=== PATIENT | male | born 1965 | race Caucasian/White ===

== ENCOUNTER 2023-10-17 12:26 | Emergency (ER) | payer OTHER, MEDICARE ==
[2023-10-17] MEDS: LIDOCAINE 1% INJ 10MG/ML (20 ML MDV) SQ ONE (12:58)
[2023-10-17] MEDS: DIPH,PERTUS(ACELL)TETVAC-LF 0.5 ML VIAL IM ONE (12:58)
[2023-10-17] MEDS: HYDROcodone/APAP 5-325MG 1 EACH TAB PO STA (13:18)
--- NOTE | 2023-10-17 13:30 | ED ---
Wound/Laceration HPI - General Chief Complaint: Wound/Laceration Stated Complaint: Fall, injury to R leg Time Seen by Provider: 10/17/23 13:28 Source: patient, family, RN notes reviewed Mode of arrival: ambulatory Limitations: no limitations - History of Present Illness Initial Comments: Patient is a 58-year-old male presented to ER with chief complaint of laceration. Patient states he excellently tripped over his toolbox and cut his right leg. He states that his foot is tingling. Denies any other injuries. Tetanus status unknown. Patient has range of motion of ankle and digits with pain. Patient also reports on Thursday he got a nail in his left pointer finger. He states he pulled it out without difficulty. He reports he is having difficulty flexing that digit. Denies any redness, drainage or paresthesias. Denies any recent fevers, chills, night sweats. - Related Data Allergies Allergy/AdvReac Type Severity Reaction Status Date / Time escitalopram [From Lexapro] Allergy Hallucinati Verified 10/17/23 12:34 ons Review of Systems ROS Statement: Those systems with pertinent positive or pertinent negative responses have been documented in the HPI. ROS Other: All systems not noted in ROS Statement are negative. Past Medical History Past Medical History: Diabetes Mellitus, Hyperlipidemia, Hypertension History of Any Multi-Drug Resistant Organisms: None Reported Past Surgical History: Orthopedic Surgery Smoking Status: Never smoker Past Alcohol Use History: None Reported Past Drug Use History: None Reported General Exam Limitations: no limitations Course Vital Signs 10/17/23 10/17/23 12:30 14:45 Temperature 97.8 F 98.3 F Pulse Rate 95 81 Respiratory 20 18 Rate Blood Pressure 159/97 139/81 O2 Sat by Pulse 100 99 Oximetry Procedures - Laceration Laceration #1 Consent Obtained: verbal consent Indication: laceration Site: lower extremity Size (cm): 8 (8 x 4 flap) Description: flap Depth: simple, single layer Anesthetic Used: lidocaine 1% Anesthesia Technique: local infiltration Amount (mls): 12 Pre-repair: wound explored, irrigated extensively, deep structures intact Type of Sutures: nylon Size of Sutures: 4-0 Number of Sutures: 13 Technique: simple, interrupted Patient Tolerated Procedure: well, no complications Medical Decision Making - Medical Decision Making Was pt. sent in by a medical professional or institution (Dr., PA, RN PROCEDURES, urgent care, hospital, or residential...) When possible be specific @ -No Did you speak to anyone other than the patient for history (EMS, parent, family, police, friend...)? What history was obtained from this source @ -No Did you review nursing and triage notes (agree or disagree)? Why? @ -I reviewed and agree with nursing and triage notes Were old charts reviewed (outside hosp., previous admission, EMS record, old EKG, old radiological studies, urgent care reports/EKG's, residential records)? Report findings @ -No old charts were reviewed Differential Diagnosis (chest pain, altered mental status, abdominal pain women, abdominal pain men, vaginal bleeding, weakness, fever, dyspnea, syncope, headache, dizziness, GI bleed, back pain, seizure, CVA, palpatations, mental health, musculoskeletal)? @ -Laceration, abrasion, contusion, avulsion, foreign body this list is not me ant to be all-inclusive EKG interpreted by me (3pts min.). @ -None done X-rays interpreted by me (1pt min.). @ -Right tib-fib x-ray interpreted by me shows no acute fractures or dislocations. CT interpreted by me (1pt min.). @ -None done U/S interpreted by me (1pt. min.). @ -None done What testing was considered but not performed or refused? (CT, X-rays, U/S, labs)? Why? @ -None What meds were considered but not given or refused? Why? @ -None Did you discuss the management of the patient with other professionals (professionals i.e. CAROLINE Dias, RN PROCEDURES, lab, RT, psych nurse, social work specialist, hydraulic blocker, teacher, sba business development officer, immigration case worker)? Give summary @ -No Was smoking cessation discussed for >3mins.? @ -No Was critical care preformed (if so, how long)? @ -No Were there social determinants of health that impacted care today? How? (Homelessness, low income, unemployed, alcoholism, drug addiction, transportation, low edu. Level, literacy, decrease access to med. care, fpc, rehab)? @ -No Was there de-escalation of care discussed even if they declined (Discuss DNR or withdrawal of care, Hospice)? DNR status @ -No What co-morbidities impacted this encounter? (DM, HTN, Smoking, COPD, CAD, Cancer, CVA, ARF, Chemo, Hep., AIDS, mental health diagnosis, sleep apnea, morbid obesity)? @ -None Was patient admitted / discharged? Hospital course, mention meds given and route, prescriptions, significant lab abnormalities, going to OR and other pertinent info. @ -Discharge. Patient is a 58-year-old male presented to ER with chief complaint of laceration. History and physical exam completed. Vitals stable. Patient no signs of acute distress. Patient did have an 8 x 4 cm flap laceration to right anterior leg. Patient's right lower extremity neurovascular intact. Patient has full active range of motion. Deep structures intact. Imaging completed in the ER negative for acute fractures or dislocations. Tetanus updated. Wound cleaned with iodine and sterile water prior to closure. Laceration closed using 13 simple interrupted sutures. Patient tolerated procedure well. Suture care and return parameters were discussed. Advised patient to have sutures removed in 10 to 14 days. Patient will be discharged stable condition with follow-up to PCP. Patient expressed understanding and agreement with care plan.] Undiagnosed new problem with uncertain prognosis? @ -No Drug Therapy requiring intensive monitoring for toxicity (Heparin, Nitro, Insulin, Cardizem)? @ -No Were any procedures done? @ -Yes Diagnosis/symptom? @ -Laceration Acute, or Chronic, or Acute on Chronic? @ -Acute Uncomplicated (without systemic symptoms) or Complicated (systemic symptoms)? @ -Uncomplicated Side effects of treatment? @ -No Exacerbation, Progression, or Severe Exacerbation? @ -No Poses a threat to life or bodily function? How? (Chest pain, [place], [place], pneumonia, PE, COPD, DKA, ARF, appy, cholecystitis, CVA, Diverticulitis, Homicidal, Suicidal, threat to staff... and all critical care pts) @ -No - Radiology Data Radiology results: report reviewed, image reviewed Disposition Clinical Impression: Laceration Disposition: HOME SELF-CARE Condition: Stable Instructions (If sedation given, give patient instructions): Care For Your Stitches (DC) Additional Instructions: Please have sutures removed in 10-14 days. Monitor for signs of infection including surrounding redness or purulent drainage. Return to the ER for any new or worsening symptoms. Is patient prescribed a controlled substance at d/c from ED?: No Referrals: Panfilo Mariano MD [Primary Care Provider] - 1-2 days Time of Disposition: 14:09
--- NOTE | 2023-10-17 13:34 | XR ---
EXAMINATION TYPE: XR tibia fibula RT DATE OF EXAM: 10/17/2023 CLINICAL HISTORY: Trip and fall with laceration injury. TECHNIQUE: Two views of the right leg are obtained. COMPARISON: None. FINDINGS: Laceration injury along the anterior lateral aspect of the distal right leg is present. Th ere is no acute fracture or dislocation seen in the right tibia or fibula. The right knee and ankle joints appear grossly within normal limits. Moderate posterior vascular calcification is present. IMPRESSION: As above.
--- NOTE | 2023-10-17 13:35 | XR ---
EXAMINATION TYPE: XR finger LT DATE OF EXAM: 10/17/2023 COMPARISON: NONE HISTORY: Pain from injury one week ago. TECHNIQUE: 3 views of the left second finger are acquired. FINDINGS: No acute fracture or dislocation second finger of the left hand. [id number] narrowing and mild spurring in the PIP and DIP joints. Overlying soft tissue is unremarkable. IMPRESSION: No acute displaced fracture in the second finger of the left hand
[2023-10-17 14:57] VITALS: BP 139/81; PULSE 81; RESP 18; TEMP 98.3
== END 2023-10-17 14:46 | disposition home or self-care (01) ==
LOC: EC 12:26
DX: S81.811A Laceration without foreign body, right lower leg, initial encounter (principal); E11.9 Type 2 diabetes mellitus without complications; I10 Essential (primary) hypertension; Z88.8 Allergy status to other drugs, medicaments and biological substances; Z23 Encounter for immunization; W01.0XXA Fall on same level from slipping, tripping and stumbling without subsequent striking against object, initial encounter
CPT/HCPCS: 12004; 99283; 90471; 73140; 73590; 90715; J2001

== ENCOUNTER 2023-11-21 11:17 | Observation (INO) | payer MEDICARE, OTHER ==
[2023-11-21 12:02] LABS: Basophils # (A) 0.1 k/uL (0-0.2); Basophils % (A) 1 %; Eosinophils # (A) 0.4 k/uL (0-0.7); Eosinophils % (A) 5 %; HCT 47.5 % (39.0-53.0); HGB 16.2 gm/dL (13.0-17.5); Lymphocytes # (A) 1.8 k/uL (1.0-4.8); Lymphocytes % (A) 23 %; MCH 30.5 pg (25.0-35.0); MCV 89.8 fL (80.0-100.0); Mean Platelet Volume 7.8; Monocytes # (A) 0.4 k/uL (0-1.0); Monocytes % (A) 5 %; Neutrophils % (A) 65 %; Platelet Count 216 k/uL (150-450); RBC 5.29 m/uL (4.30-5.90); RDW 12.4 % (11.5-15.5); WBC 7.7 k/uL (3.8-10.6)
--- NOTE | 2023-11-21 12:05 | ED ---
General Adult HPI - General Chief complaint: Neuro Symptoms/Deficit Stated complaint: headache/facial numbness Time Seen by Provider: 11/21/23 11:20 Source: patient, RN notes reviewed, old records reviewed Mode of arrival: ambulatory Limitations: no limitations - History of Present Illness Initial comments: This is a 58-year-old male who presents to the emergency department complaining that 2 days ago he started having a left-sided headache. Patient states this morning when he woke up he started noticing that the left side of his face was drooping and he was having difficulty drinking his coffee because it was dripping out of his mouth. Patient states it feels a little bit of numbness to the left side of the face. Patient denies any weakness or numbness of the extremities. Patient states because of the droopiness and states he feels like he has to enunciate his words better. Patient has any fever or chills. Patient denies any chest pain difficulty breathing or shortness of breath. - Related Data Home Medications Medication Instructions Recorded Confirmed Atorvastatin [Lipitor] 40 mg PO DAILY 11/21/23 11/21/23 Beets 1 tab PO DAILY 11/21/23 11/21/23 DULoxetine HCL [Cymbalta] 60 mg PO DAILY 11/21/23 11/21/23 Losartan Potassium 100 mg PO DAILY 11/21/23 11/21/23 Multivitamins, Thera [Multivitamin 1 tab PO DAILY 11/21/23 11/21/23 (formulary)] QUEtiapine [SEROquel] 50 mg PO HS 11/21/23 11/21/23 atenoloL [Tenormin] 25 mg PO DAILY 11/21/23 11/21/23 hydrOXYzine HCL [Hydroxyzine HCl] 50 mg PO DAILY 11/21/23 11/21/23 metFORMIN HCL ER [Glucophage XR] 1,000 mg PO PC-LUNCH 11/21/23 11/21/23 Allergies Allergy/AdvReac Type Severity Reaction Status Date / Time escitalopram [From Lexapro] Allergy Hallucinati Verified 11/21/23 11:20 ons Review of Systems ROS Statement: Those systems with pertinent positive or pertinent negative responses have been documented in the HPI. ROS Other: All systems not noted in ROS Statement are negative. Past Medical History Past Medical History: Diabetes Mellitus, Hyperlipidemia, Hypertension History of Any Multi-Drug Resistant Organisms: None Reported Past Surgical History: Orthopedic Surgery Smoking Status: Never smoker Past Alcohol Use History: None Reported Past Drug Use History: None Reported General Exam - General Exam Comments Initial Comments: GENERAL: Patient is well-developed and well-nourished. Patient is nontoxic and well- hydrated and is in no acute distress. ENT: Neck is soft and supple. No significant lymphadenopathy is noted. Oropharynx is clear. Moist mucous membranes. Neck has full range of motion without eliciting any pain. EYES: The sclera were anicteric and conjunctiva were pink and moist. Extraocular movements were intact and pupils were equal round and reactive to light. Eyelids were unremarkable. PULMONARY: Unlabored respirations. Good breath sounds bilaterally. No audible rales rhonchi or wheezing was noted. CARDIOVASCULAR: There is a regular rate and rhythm without any murmurs gallops or rubs. ABDOMEN: Soft and nontender with normal bowel sounds. SKIN: Skin is clear with no lesions or rashes and otherwise unremarkable. NEUROLOGIC: Patient is alert and oriented x3. Patient has some left-sided facial droop the forehead does appear to be involved a little bit on the left. Patient has normal sensation of the left side of the face. MUSCULOSKELETAL: Normal extremities with adequate strength and full range of motion. LYMPHATICS: No significant lymphadenopathy is noted PSYCHIATRIC: Normal psychiatric evaluation. Limitations: no limitations Course Vital Signs 11/21/23 11/21/23 11/21/23 11:18 12:16 12:31 Temperature 98.8 F Pulse Rate 101 H 89 87 Respiratory 18 18 16 Rate Blood Pressure 148/67 137/89 O2 Sat by Pulse 98 97 97 Oximetry 11/21/23 11/21/23 13:02 14:07 Temperature Pulse Rate 83 87 Respiratory 18 18 Rate Blood Pressure 126/82 145/93 O2 Sat by Pulse 97 98 Oximetry Medical Decision Making - Medical Decision Making Was pt. sent in by a medical professional or institution (, PA, MUSIC TEACHER, urgent care, hospital, or retirement...) When possible be specific @ -No Did you speak to anyone other than the patient for history (EMS, parent, family, police, friend...)? What history was obtained from this source @ -No Did you review nursing and triage notes (agree or disagree)? Why? @ -I reviewed and agree with nursing and triage notes Were old charts reviewed (outside hosp., previous admission, EMS record, old EKG, old radiological studies, urgent care reports/EKG's, retirement records)? Report findings @ -No old charts were reviewed Differential Diagnosis (chest pain, altered mental status, abdominal pain women, abdominal pain men, vaginal bleeding, weakness, fever, dyspnea, syncope, headache, dizziness, GI bleed, back pain, seizure, CVA, palpatations, mental health, musculoskeletal)? @ -Differential CVA Ischemic stroke, hemorrhagic stroke, Brooks's palsy, brain tumor, atypical migraine, Wernicke's encephalopathy, seizure, multiple sclerosis, meningitis, encephalitis, hypoglycemia, Guillain-Self, electrolytes disturbance, myasthenia gravis.... This is not meant to be an all-inclusive list EKG interpreted by me (3pts min.). @ -As above X-rays interpreted by me (1pt min.). @ -None done CT interpreted by me (1pt min.). @ -CT of the brain shows no acute normality. CT angiogram of the head and neck shows no acute normality. U/S interpreted by me (1pt. min.). @ -None done What testing was considered but not performed or refused? (CT, X-rays, U/S, labs)? Why? @ -None What meds were considered but not given or refused? Why? @ -None Did you discuss the management of the patient with other professionals (professionals i.e. , PA, MUSIC TEACHER, lab, RT, psych nurse, high school social studies tutor, retail wireless sales consultant, teacher, licensed loan officer assistant, child welfare caseworker)? Give summary @ -I spoke with Dr. Diggs agreed admit the patient. I spoke with Dr. Diaz and he will be on consult Was smoking cessation discussed for >3mins.? @ -No Was critical care preformed (if so, how long)? @ -No Were there social determinants of health that impacted care today? How? (Homeles sness, low income, unemployed, alcoholism, drug addiction, transportation, low edu. Level, literacy, decrease access to med. care, senior care, rehab)? @ -No Was there de-escalation of care discussed even if they declined (Discuss DNR or withdrawal of care, Hospice)? DNR status @ -No What co-morbidities impacted this encounter? (DM, HTN, Smoking, COPD, CAD, Cancer, CVA, ARF, Chemo, Hep., AIDS, mental health diagnosis, sleep apnea, morbid obesity)? @ -None Was patient admitted / discharged? Hospital course, mention meds given and route, prescriptions, significant lab abnormalities, going to OR and other pertinent info. @ -Patient was started on valacyclovir and prednisone. Dr. Diaz will be consulted Undiagnosed new problem with uncertain prognosis? @ -No Drug Therapy requiring intensive monitoring for toxicity (Heparin, Nitro, Insulin, Cardizem)? @ -No Were any procedures done? @ -No Diagnosis/symptom? @ -CVA Acute, or Chronic, or Acute on Chronic? @ -Acute Uncomplicated (without systemic symptoms) or Complicated (systemic symptoms)? @ -Comp Side effects of treatment? @ -Shira Exacerbation, Progression, or Severe Exacerbation? @ -No Poses a threat to life or bodily function? How? (Chest pain, [place], [place], pneumonia, PE, COPD, DKA, ARF, appy, cholecystitis, CVA, Diverticulitis, Homicidal, S uicidal, threat to staff... and all critical care pts) @ -Yes this can lead to further stroke and morbidity or mortality - Lab Data Result diagrams: 11/21/23 11:40 11/21/23 11:40 Lab Results 11/21/23 11/21/23 11/21/23 Range/Units 11:40 11:40 11:40 WBC 7.7 (3.8-10.6) k/uL RBC 5.29 (4.30-5.90) m/uL Hgb 16.2 (13.0-17.5) gm/dL Hct 47.5 (39.0-53.0) % MCV 89.8 (80.0-100.0) fL MCH 30.5 (25.0-35.0) pg MCHC 34.0 (31.0-37.0) g/dL RDW 12.4 (11.5-15.5) % Plt Count 216 (150-450) k/uL MPV 7.8 Neutrophils % 65 % Lymphocytes % 23 % Monocytes % 5 % Eosinophils % 5 % Basophils % 1 % Neutrophils # 5.0 (1.3-7.7) k/uL Lymphocytes # 1.8 (1.0-4.8) k/uL Monocytes # 0.4 (0-1.0) k/uL Eosinophils # 0.4 (0-0.7) k/uL Basophils # 0.1 (0-0.2) k/uL PT 11.4 (10.0-12.5) sec INR 1.0 (<1.2) APTT 24.7 (22.0-30.0) sec Sodium 135 L (137-145) mmol/L Potassium 4.1 (3.5-5.1) mmol/L Chloride 105 (98-107) mmol/L Carbon Dioxide 21 L (22-30) mmol/L Anion Gap 9 mmol/L BUN 11 (9-20) mg/dL Creatinine 0.62 L (0.66-1.25) mg/dL Est GFR (CKD-EPI)AfAm >90 (>60 ml/min/1.73 sqM) Est GFR (CKD-EPI)NonAf >90 (>60 ml/min/1.73 sqM) Glucose 341 H (74-99) mg/dL Calcium 9.1 (8.4-10.2) mg/dL Total Bilirubin 0.7 (0.2-1.3) mg/dL AST 31 (17-59) U/L ALT 35 (4-49) U/L Alkaline Phosphatase 129 H (38-126) U/L Creatine Kinase 105 (55-170) U/L Troponin I (0.000-0.034) ng/mL Total Protein 6.9 (6.3-8.2) g/dL Albumin 4.2 (3.5-5.0) g/dL 11/21/23 Range/Units 11:40 WBC (3.8-10.6) k/uL RBC (4.30-5.90) m/uL Hgb (13.0-17.5) gm/dL Hct (39.0-53.0) % MCV (80.0-100.0) fL MCH (25.0-35.0) pg MCHC (31.0-37.0) g/dL RDW (11.5-15.5) % Plt Count (150-450) k/uL MPV Neutrophils % % Lymphocytes % % Monocytes % % Eosinophils % % Basophils % % Neutrophils # (1.3-7.7) k/uL Lymphocytes # (1.0-4.8) k/uL Monocytes # (0-1.0) k/uL Eosinophils # (0-0.7) k/uL Basophils # (0-0.2) k/uL PT (10.0-12.5) sec INR (<1.2) APTT (22.0-30.0) sec Sodium (137-145) mmol/L Potassium (3.5-5.1) mmol/L Chloride (98-107) mmol/L Carbon Dioxide (22-30) mmol/L Anion Gap mmol/L BUN (9-20) mg/dL Creatinine (0.66-1.25) mg/dL Est GFR (CKD-EPI)AfAm (>60 ml/min/1.73 sqM) Est GFR (CKD-EPI)NonAf (>60 ml/min/1.73 sqM) Glucose (74-99) mg/dL Calcium (8.4-10.2) mg/dL Total Bilirubin (0.2-1.3) mg/dL AST (17-59) U/L ALT (4-49) U/L Alkaline Phosphatase (38-126) U/L Creatine Kinase (55-170) U/L Troponin I <0.012 (0.000-0.034) ng/mL Total Protein (6.3-8.2) g/dL Albumin (3.5-5.0) g/dL Disposition Clinical Impression: Cerebrovascular accident (CVA) Disposition: ADMITTED IP TO THIS [facility] Referrals: Panfilo Mariano MD [Primary Care Provider] - 1-2 days Time of Disposition: 15:08
[2023-11-21 12:16] LABS: ALT 35 U/L (4-49); AST 31 U/L (17-59); African American GFR (CKD) >90 (>60 ml/min/1.73 sqM); Albumin 4.2 g/dL (3.5-5.0); Alkaline Phosphatase 129 U/L (38-126); Anion Gap 9 mmol/L; Blood Urea Nitrogen 11 mg/dL (9-20); Calcium 9.1 mg/dL (8.4-10.2); Carbon Dioxide 21 mmol/L (22-30); Chloride 105 mmol/L (98-107); Creatine Kinase 105 U/L (55-170); Glucose 341 mg/dL (74-99); Non-African American GFR(CKD) >90 (>60 ml/min/1.73 sqM); Potassium 4.1 mmol/L (3.5-5.1); Sodium 135 mmol/L (137-145); Total Bilirubin 0.7 mg/dL (0.2-1.3); Total Protein 6.9 g/dL (6.3-8.2)
[2023-11-21 12:20] LABS: Partial Thromboplastin Time 24.7 sec (22.0-30.0); Prothrombin Time 11.4 sec (10.0-12.5)
--- NOTE | 2023-11-21 12:29 | CT ---
EXAMINATION TYPE: CT brain wo con DATE OF EXAM: 11/21/2023 COMPARISON: None HISTORY: Neuro deficit, acute, stroke suspected CT DLP: [address] of the brain was performed. The ventricles, basal cisterns and sulci overlying the cerebral convexities demonstrate mild enlargem ent. There is no evidence for intracranial hemorrhage or sulcal effacement. There is decreased attenuation about the periventricular white matter and deep white matter of both c erebral hemispheres, compatible with chronic small vessel ischemia. Differential diagnosis does inclu de demyelination. No mass effects are seen.No midline shift. Osseous calvarium is intact. If symptoms persist consider MRI. IMPRESSION: 1. Age related atrophic and chronic small vessel ischemic change without acute intracranial process s een at this time.
--- NOTE | 2023-11-21 12:44 | CT ---
EXAMINATION TYPE: CT angio head neck DATE OF EXAM: 11/21/2023 COMPARISON: HISTORY: Neuro deficit, acute, stroke suspected CT DLP: 891.3 mGycm CONTRAST: Performed without and with IV Contrast, patient injected with 65 ml mL of Isovue 370. Combination Contrast CTA cervical carotids and [place] CTA cervical carotids with 3-D recons truction Contrast CTA of the cervical carotids was performed 3-D reconstruction imaging obtained at a separate workstation. Right carotid system: Mild plaque is seen of the right common carotid artery. There is moderate calc ified plaque also noted at the carotid bulb and proximal ICA. Estimated diameter reduction of 60%. EC A is patent. Right vertebral artery appears unremarkable. Left carotid system: Mild plaque is seen of the left common carotid artery. There is moderate calcif ied plaque also noted at the carotid bulb and proximal ICA. Estimated diameter reduction of 60-70% E CA is patent. Left vertebral artery appears unremarkable. IMPRESSION: 1. Bilateral proximal ICA diameter reduction of 60% on the right and 60-70% on the left. CTA [place] with 3-D reconstruction Contrast CTA of the [place] was performed 3-D reconstruction imaging obtained at a separate workstation. Vertebrobasilar system as well as intracranial portions of the internal carotid arteries and their ma lotus tributaries are patent. I do not see evidence for sizable aneurysm or vascular malformation. Pl ease note MRI provides greater sensitivity and specificity. Visualized brain appears grossly unremar kable. IMPRESSION: 1. No significant abnormality. NASCET criteria was used in interpretation of this exam?
--- NOTE | 2023-11-21 13:22 | XR ---
EXAMINATION TYPE: XR chest 2V DATE OF EXAM: 11/21/2023 COMPARISON: NONE HISTORY: Shortness of breath TECHNIQUE: Frontal and lateral views of the chest are obtained. FINDINGS: Scattered senescent parenchymal changes noted. Hyperinflation compatible with COPD. No evidence for infiltrate. No evidence for atelectasis. Focal eventration right hemidiaphragm anteri ti. Heart size is stable. Mediastinal structures are stable and grossly unremarkable. No evidence for hilar prominence. Degenerative changes dorsal spine. IMPRESSION: 1. No evidence for acute pulmonary disease.
[2023-11-21] MEDS: predniSONE 20 MG TAB PO STA (13:46)
[2023-11-21] MEDS: valACYclovir HCL 1,000 MG TABLET PO ONE (13:47)
[2023-11-21] MEDS ORDERED: ONDANSETRON 4 MG/2 ML VIAL IVP PRN (16:52)
[2023-11-21] MEDS ORDERED: TEMAZEPAM 15 MG CAP PO PRN (16:52)
[2023-11-21] MEDS ORDERED: ACETAMINOPHEN TAB 325 MG TAB PO PRN (16:52)
[2023-11-21] MEDS ORDERED: LACTULOSE 20 GM/30 ML CUP PO PRN (16:52)
[2023-11-21] MEDS ORDERED: LORazepam 0.5 MG TAB PO PRN (16:52)
[2023-11-21] MEDS ORDERED: NALOXONE 0.4 MG/ML 1 ML VIAL IV PRN (16:52)
[2023-11-21] MEDS ORDERED: CALCIUM CARBONATE 500 MG CHEWABLE PO PRN (16:52)
[2023-11-21 16:57] LABS: Glucose,Whole Blood 255 mg/dL (70-110)
[2023-11-21 17:04] VITALS: BP 167/96; PULSE 86; RESP 16; TEMP 98.7
--- NOTE | 2023-11-21 17:32 | P.HPIM ---
History of Present Illness H&P Date: 11/21/23 Chief Complaint: Left face weakness This is a pleasant 58-year-old patient who follows with Dr. Panfilo Mariano. Chronic stable medical conditions include diabetes, hyperlipidemia, hypertension, BPH, Mnire's disease primarily affecting the left ear. About 2 years ago he had left upper extremity biceps tendon rupture repair and has gone on disability since then. Also takes medication anxiety and depression. Patient did wake up and he was finding that coffee was drooling on the left side of the mouth. For 2 days he has had some discomfort on the left side of the scalp anteriorly. Denies any fever and chills. Notices face to be asymmetrical. In fact had gone to his family doctor yesterday. With no symptoms. No change in speech, swallowing, other focal symptoms. Review of systems: GEN.: None EYES: None HEENT: None NECK: None RESPIRATORY: None CARDIOVASCULAR: None GASTROINTESTINAL: None GENITOURINARY: BPH symptoms e MUSCULOSKELETAL: Weakness in the left arm from prior surgery e LYMPHATICS: None HEMATOLOGICAL: None PSYCHIATRY: None NEUROLOGICAL: As above Social history: Lives alone. 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 Physical examination: VITAL SIGNS: 98.8, 87, 18, 145 x 93, 98% room air GENERAL: BMI 33.8, reclining bed awake comfortable. EYES: Pupils equal. Conjunctiva latrell l. HEENT: External appearance of nose and ears normal, oral cavity grossly normal. NECK: JVD not raised; masses not palpable. HEART: First and second heart sounds are normal; no edema. LUNGS: Respiratory rate normal; clear to auscultation. ABDOMEN: Soft, nontender, liver spleen not palpable, no masses palpable. PSYCH: Alert and oriented x3; mood and affect latrell l. MUSCULOSKELETAL:No Clubbing/cyanosis;muscles-grossly intact. Weakness in the left arm NEUROLOGICAL: On looking upwards, no crease on the left forehead. Weak orbicularis ocular as on the left side mouth pulled to the right. Weak left- sided cheek muscle.. No other focal weakness LYMPHATICS: No lymph nodes palpable in the axilla and neck INVESTIGATIONS, reviewed in the clinical context: November 20: White count 7.7 hemoglobin 16.2 platelets 216 sodium 135 potassium 4.1 creatinine 0.62 blood glucose 341 Chest x-ray film personally reviewed by me-some elevation of right diaphragm. Some hyperinflation. 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 Presentation is within 24 hours. Prednisone 60 mg for 7 days. Valacyclovir 1000 mg 3 times a day for 5 days. Facial exercises. Facial exercises were discussed with the patient. -Diabetes mellitus type 2. On oral hypoglycemic Metformin increased to 1000 mg twice daily. -Essential hypertension Tenormin 25 mg a day. Changed to losartan 100 mg nightly. -Depression anxiety Cymbalta 60 mg a day -Hyperlipidemia Lipitor 40 mg a day -Obesity BMI 33.8 Weight loss measures -BPH Patient's PCP is changing his medications Care was discussed with the patient. Questions answered. Patient can be discharged later today. Troponin I less than 0.012 Past Medical History Past Medical History: Asthma, Diabetes Mellitus, Eye Disorder, Hyperlipidemia, Hypertension, Prostate Disorder Additional Past Medical History / Comment(s): bilateral cataracts with repair, childhood asthma, Menieres disease History of Any Multi-Drug Resistant Organisms: None Reported Past Surgical History: Orthopedic Surgery Additional Past Surgical History / Comment(s): Lt upper extremity rupture/repair bicep tendon, Bilateral cataract surgery, Cyst removed off neck Past Anesthesia/Blood Transfusion Reactions: Previous Problems w/ Anesthesia Additional Past Anesthesia/Blood Transfusion Reaction / Comment(s): Slow to wake up from anesthesia Past Psychological History: Anxiety, Depression Smoking Status: Current every day smoker Past Alcohol Use History: None Reported Past Drug Use History: None Reported - Past Family History Father Family Medical History: Coronary Artery Disease (CAD) Additional Family Medical History / Comment(s): CABG, Liver CA Medications and Allergies Home Medications Medication Instructions Recorded Confirmed Type Atorvastatin [Lipitor] 40 mg PO DAILY 11/21/23 11/21/23 History Beets 1 tab PO DAILY 11/21/23 11/21/23 History DULoxetine HCL [Cymbalta] 60 mg PO DAILY 11/21/23 11/21/23 History Losartan Potassium 100 mg PO DAILY 11/21/23 11/21/23 History Multivitamins, Thera [Multivitamin 1 tab PO DAILY 11/21/23 11/21/23 History (formulary)] QUEtiapine [SEROquel] 50 mg PO HS 11/21/23 11/21/23 History atenoloL [Tenormin] 25 mg PO DAILY 11/21/23 11/21/23 History hydrOXYzine HCL [Hydroxyzine HCl] 50 mg PO DAILY 11/21/23 11/21/23 History metFORMIN HCL ER [Glucophage XR] 1,000 mg PO PC-LUNCH 11/21/23 11/21/23 History Allergies Allergy/AdvReac Type Severity Reaction Status Date / Time escitalopram [From Lexapro] Allergy Hallucinati Verified 11/21/23 16:26 ons Physical Exam Vitals: Vital Signs Temp Pulse Pulse Resp BP BP BP 11/21/23 16:40 98.7 F 86 16 167/96 11/21/23 16:12 98.7 F 86 16 167/96 11/21/23 15:57 89 18 148/89 11/21/23 14:07 87 18 145/93 11/21/23 13:02 83 18 126/82 11/21/23 12:31 87 16 137/89 11/21/23 12:16 89 18 11/21/23 11:18 98.8 F 101 H 18 148/67 Pulse Ox 11/21/23 16:40 98 11/21/23 16:12 98 11/21/23 15:57 97 11/21/23 14:07 98 11/21/23 13:02 97 11/21/23 12:31 97 11/21/23 12:16 97 11/21/23 11:18 98 Intake and Output 11/21/23 11/21/23 11/21/23 06:59 14:59 22:59 Other: Weight 109.769 kg 109.769 kg Results CBC & Chem 7: 11/21/23 11:40 11/21/23 11:40 Labs: Abnormal Lab Results - Last 24 Hours (Table) 11/21/23 11/21/23 Range/Units 11:40 16:55 Sodium 135 L (137-145) mmol/L Carbon Dioxide 21 L (22-30) mmol/L Creatinine 0.62 L (0.66-1.25) mg/dL Glucose 341 H (74-99) mg/dL POC Glucose (mg/dL) 255 H (70-110) mg/dL Alkaline Phosphatase 129 H (38-126) U/L Thrombosis Risk Factor Assmnt - Choose All That Apply Each Factor Represents 1 point: Age 41-60 years, Obesity (BMI >25) Thrombosis Risk Factor Assessment Total Risk Factor Score: 2 Thrombosis Risk Factor Assessment Level: Low Risk
--- NOTE | 2023-11-21 17:38 | P.DS ---
Providers Date of admission: 11/21/23 15:09 Expected date of discharge: 11/21/23 Attending physician: Jacky Diggs Primary care physician: Panfilo Mariano [facility] Course: Chief Complaint: Left face weakness This is a pleasant 58-year-old patient who follows with Dr. Panfilo Mariano. Chronic stable medical conditions include diabetes, hyperlipidemia, hypertension, BPH, Mnire's disease primarily affecting the left ear. About 2 years ago he had left upper extremity biceps tendon rupture repair and has gone on disability since then. Also takes medication anxiety and depression. Patient did wake up and he was finding that coffee was drooling on the left side of the mouth. For 2 days he has had some discomfort on the left side of the scalp anteriorly. Denies any fever and chills. Notices face to be asymmetrical. In fact had gone to his family doctor yesterday. With no symptoms. No change in speech, swallowing, other focal symptoms. November 20: Discussed at length with the patient. Exercises. Patient will do 7 days of 60 mg of prednisone a day. And 5 days of acyclovir. Also increase his metformin to 1000 mg twice daily. Follow-up with his PCP. Social history: Lives alone. 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 Physical examination: VITAL SIGNS: 98.8, 87, 18, 145 x 93, 98% room air GENERAL: BMI 33.8, reclining bed awake comfortable. EYES: Pupils equal. Conjunctiva latrell l. HEENT: External appearance of nose and ears normal, oral cavity grossly normal. NECK: JVD not raised; masses not palpable. HEART: First and second heart sounds are normal; no edema. LUNGS: Respiratory rate normal; clear to auscultation. ABDOMEN: Soft, nontender, liver spleen not palpable, no masses palpable. PSYCH: Alert and oriented x3; mood and affect latrell l. MUSCULOSKELETAL:No Clubbing/cyanosis;muscles-grossly intact. Weakness in the left arm NEUROLOGICAL: On looking upwards, no crease on the left forehead. Weak orbicularis ocular as on the left side mouth pulled to the right. Weak left- sided cheek muscle.. No other focal weakness LYMPHATICS: No lymph nodes palpable in the axilla and neck INVESTIGATIONS, reviewed in the clinical context: November 20: White count 7.7 hemoglobin 16.2 platelets 216 sodium 135 potassium 4.1 creatinine 0.62 blood glucose 341 Chest x-ray film personally reviewed by me-some elevation of right diaphragm. Some hyperinflation. 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 Presentation is within 24 hours. Prednisone 60 mg for 7 days. Valacyclovir 1000 mg 3 times a day for 5 days. Facial exercises. Facial exercises were discussed with the patient. -Diabetes mellitus type 2. On oral hypoglycemic Metformin increased to 1000 mg twice daily. -Essential hypertension Tenormin 25 mg a day. Changed to losartan 100 mg nightly. -Depression anxiety Cymbalta 60 mg a day -Hyperlipidemia Lipitor 40 mg a day -Obesity BMI 33.8 Weight loss measures -BPH Patient's PCP is changing his medications Disposition: Home Past Medical History Past Medical History: Asthma, Diabetes Mellitus, Eye Disorder, Hyperlipidemia, Hypertension, Prostate Disorder Additional Past Medical History / Comment(s): bilateral cataracts with repair, childhood asthma, Menieres disease History of Any Multi-Drug Resistant Organisms: None Reported Past Surgical History: Orthopedic Surgery Additional Past Surgical History / Comment(s): Lt upper extremity rupture/repair bicep tendon, Bilateral cataract surgery, Cyst removed off neck Past Anesthesia/Blood Transfusion Reactions: Previous Problems w/ Anesthesia Additional Past Anesthesia/Blood Transfusion Reaction / Comment(s): Slow to wake up from anesthesia Past Psychological History: Anxiety, Depression Smoking Status: Current every day smoker Past Alcohol Use History: None Reported Past Drug Use History: None Reported Plan - Discharge Summary Discharge Rx Participant: Yes New Discharge Prescriptions: New predniSONE [Deltasone] 60 mg PO DAILY 7 Days #18 tab metFORMIN HCL 1,000 mg PO BID #60 tablet valACYclovir HCL [Valtrex] 1,000 mg PO TID #15 tab Continue atenoloL [Tenormin] 25 mg PO DAILY Atorvastatin [Lipitor] 40 mg PO DAILY QUEtiapine [SEROquel] 50 mg PO HS Beets 1 tab PO DAILY Multivitamins, Thera [Multivitamin (formulary)] 1 tab PO DAILY DULoxetine HCL [Cymbalta] 60 mg PO DAILY hydrOXYzine HCL [Atarax] 50 mg PO DAILY Changed Losartan Potassium 100 mg PO HS #0 Discontinued metFORMIN HCL ER [Glucophage XR] 1,000 mg PO PC-LUNCH Discharge Medication List Atorvastatin [Lipitor] 40 mg PO DAILY 11/21/23 [History] Beets 1 tab PO DAILY 11/21/23 [History] DULoxetine HCL [Cymbalta] 60 mg PO DAILY 11/21/23 [History] Losartan Potassium 100 mg PO HS #0 11/21/23 [Rx] Multivitamins, Thera [Multivitamin (formulary)] 1 tab PO DAILY 11/21/23 [Histo ry] QUEtiapine [SEROquel] 50 mg PO HS 11/21/23 [History] atenoloL [Tenormin] 25 mg PO DAILY 11/21/23 [History] hydrOXYzine HCL [Atarax] 50 mg PO DAILY 11/21/23 [History] metFORMIN HCL 1,000 mg PO BID #60 tablet 11/21/23 [Rx] predniSONE [Deltasone] 60 mg PO DAILY 7 Days #18 tab 11/21/23 [Rx] valACYclovir HCL [Valtrex] 1,000 mg PO TID #15 tab 11/21/23 [Rx] Follow up Appointment(s)/Referral(s): Panfilo Mariano MD [Primary Care Provider] - 1-2 days
[2023-11-21] MEDS: ENOXAPARIN 40 MG/0.4 ML SYRINGE SQ SCH (18:37)
[2023-11-21] MEDS ORDERED: predniSONE 10 MG TAB PO SCH (21:00)
[2023-11-21] MEDS ORDERED: QUEtiapine 50 MG TAB PO SCH (21:00)
[2023-11-21] MEDS ORDERED: valACYclovir HCL 1,000 MG TABLET PO SCH (22:00)
[2023-11-22] MEDS ORDERED: atenoloL 25 MG TAB PO SCH (09:00)
[2023-11-22] MEDS ORDERED: ATORVASTATIN 40 MG TAB PO SCH (09:00)
[2023-11-22] MEDS ORDERED: LOSARTAN 50 MG TAB PO SCH (09:00)
[2023-11-22] MEDS ORDERED: MULTIVITAMINS, THERA 1 EACH TAB PO SCH (09:00)
[2023-11-22] MEDS ORDERED: DULoxetine HCL 60 MG CAPSULE.DR PO SCH (09:00)
[2023-11-22] MEDS ORDERED: metFORMIN 500 MG TAB PO SCH (13:30)
== END 2023-11-21 19:00 | disposition home or self-care (01) ==
LOC: EC 11:17 → 6NMEDSUR 15:09
PROVIDERS: ADMIT Hospitalist; ATTEND Hospitalist
DX: G51.0 Bell's palsy (principal); E78.5 Hyperlipidemia, unspecified; I10 Essential (primary) hypertension; E11.9 Type 2 diabetes mellitus without complications; N40.0 Benign prostatic hyperplasia without lower urinary tract symptoms; F41.9 Anxiety disorder, unspecified; F32.A Depression, unspecified; E66.9 Obesity, unspecified; F17.200 Nicotine dependence, unspecified, uncomplicated; Z68.33 Body mass index [BMI] 33.0-33.9, adult; Z79.84 Long term (current) use of oral hypoglycemic drugs; Z79.899 Other long term (current) drug therapy
CPT/HCPCS: 99285; 36415; 93005; 80053; 82550; 84484; 85025; 85610; 85730; 71046; 70496; 70450; 70498; G0378; J7512; Q9967